=== PATIENT | female | born 1990 | race Caucasian/White ===

== ENCOUNTER 2020-11-16 09:54 | Emergency (ER) | payer OTHER, BC ==
[~2020-11-16] VITALS: Ht 152.4 cm; Wt 93.0 kg
[2020-11-16 10:00] VITALS: BP 130/88
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
== END 2020-11-16 10:35 | disposition home or self-care (01) ==
LOC: ER 09:54
DX: S00.83XA Contusion of other part of head, initial encounter (principal); S70.212A Abrasion, left hip, initial encounter; V03.99XA Pedestrian with other conveyance injured in collision with car, pick-up truck or van, unspecified whether traffic or nontraffic accident, initial encounter; Y93.01 Activity, walking, marching and hiking; Y92.89 Other specified places as the place of occurrence of the external cause; Y99.8 Other external cause status
CPT/HCPCS: 99282

== ENCOUNTER 2020-12-22 08:24 | Emergency (ER) | payer BC, OTHER ==
[~2020-12-22] VITALS: Ht 152.4 cm; Wt 95.1 kg
[2020-12-22 08:24] VITALS: BP 127/79
--- NOTE | 2020-12-22 08:49 | PHYS DOC ---
Past History Past Surgical History: Other Additional Past Surgical Histo: WISDOM TEETH Alcohol Use: Rarely Adult General Chief Complaint Chief Complaint: BACK PAIN OR INJURY [facility] HPI Patient is a 30-year-old female presenting for tailbone pain. Onset was after an injury suffered yesterday while at local [employer]. States she was going down the slide and accidentally landed on the bottom directly on her tailbone. She did not hit her head, no loss of consciousness. She reports she had focal pain to her inferior portion of tailbone and superior glutes. Reported pain that was worse with sitting and alleviated with standing and walking around. She took x2 extra strength Tylenol on 2 separate occasions yesterday with mild relief in pain. She woke up today with ongoing pain prompting her to come in for evaluation. She has no other concerning red flag signs or symptoms of back pain such as long-term steroid use, fever, IV drug use, unintentional weight loss or other concerning findings Review of Systems Review of Systems Fourteen body systems of review of systems have been reviewed. See HPI for pertinent positives and negative responses, other cabrera all other systems are negative, non-pertinent or non-contributory Allergies Allergies Allergies Coded Allergies Type Severity Reaction Last Updated Verified No Known Drug Allergies 11/16/20 No Physical Exam Physical Exam Constitutional: Well developed, obese, well nourished, no acute distress, non- toxic appearance. HENT: Normocephalic, atraumatic, bilateral external ears normal, oropharynx moist, no oral exudates, nose normal. Eyes: PERRLA, EOMI, conjunctiva normal, no discharge. Neck: Normal range of motion, no tenderness, supple, no stridor. Cardiovascular: Heart rate regular, sinus rhythm, no murmurs rubs or gallops Lungs & Thorax: Bilateral breath sounds clear to auscultation Abdomen: Bowel sounds normal, soft, no tenderness, no masses, no pulsatile masses. Nonsurgical abdomen, no peritoneal signs Skin: Warm, dry, no erythema, no rash. Back: No midline spinal tenderness of cervical thoracic or lumbar regions, negative straight leg raise bilaterally, no CVA tenderness. Extremities: No tenderness, no cyanosis, no clubbing, ROM intact, no edema. Neurologic: Alert and oriented X 3, no saddle anesthesia, normal motor & sensory function, no focal deficits noted. Psychologic: Affect normal, judgement normal, mood normal. Current Patient Data Vital Signs Vital Signs Date Time Temp Pulse Resp B/P (MAP) Pulse Ox O2 Delivery O2 Flow Rate FiO2 12/22/20 08:24 102 18 127/79 (95) 98 Room Air Vital Signs Date Time Temp Pulse Resp B/P (MAP) Pulse Ox O2 Delivery O2 Flow Rate FiO2 12/22/20 08:24 102 18 127/79 (95) 98 Room Air EKG EKG [] Radiology/Procedures Radiology/Procedures [] Heart Score C/O Chest Pain: No Risk Factors: Risk Factors: DM, Current or recent (<one month) smoker, HTN, HLP, family history of CAD, obesity. Risk Scores: Risk Factors: DM, Current or recent (<one month) smoker, HTN, HLP, family history of CAD, obesity. Course & Med Decision Making Course & Med Decision Making ABCs, history and physical examination non-concerning. There are no red flag signs of back pain present. I have low suspicion for malignancy/mets, acute Spinal Fracture, Vertebral Osteomyelitis, Epidural Abscess, Infected or Obstructing Kidney Stone. Their presentation appears most likely to be secondary to non-emergent musculoskeletal etiology vs non-emergent disc herniation. ED Workup: Defer imaging and labwork for outpatient follow up at this time. Disposition: Discharge. Strict return precautions discussed with patient with full understanding. Advised patient to follow up promptly with primary care provider Angela Disclaimer Angela Disclaimer This electronic medical record was generated, in whole or in part, using a voice recognition dictation system. Departure Departure: Impression: Primary Impression: Lower back pain Disposition: HOME / SELF CARE / HOMELESS Condition: STABLE Referrals: PCP,NO (PCP) Patient Instructions: Back Pain, Adult, Tailbone Injury Additional Instructions: You were evaluated in the Emergency Department today for back pain. Your evaluation suggests no acute abnormalities which require further intervention at this time. Your pain is most likely due to to a musculoskeletal cause that should improve with supportive care. - Move around as tolerated but avoiding heavy lifting. ``Bed rest is not recommended nor is it the best treatment for low back pain. - Medications will help control your discomfort: - -Ibuprofen (800 mg every 8 hours for pain) with food. - -Tylenol - Do not drink alcohol, drive a car, operate machinery, or get up on ladders or heights when taking any prescribed pain medications. - Do not drive home if you received prescribed pain medications here in the ED. Return to the ED immediately if you develop any of the following problems: - Leaking urine or difficulty urinating; - Inability to control your bowels; - New numbness or weakness in your legs or numbness between your legs; - Inability to walk - Fever Scripts Cyclobenzaprine Hcl (CYCLOBENZAPRINE HCL) 10 Mg Tablet 1 TAB PO QHS for muscle spasms, #15 TAB Prov: ROMELIA MASSEY DO 12/22/20 ROMELIA MASSEY DO Dec 22, 2020 08:49
[2020-12-22] MEDS ORDERED: CYCL10TA19 PO (09:24)
== END 2020-12-22 09:28 | disposition home or self-care (01) ==
LOC: ER 08:24
DX: M54.59 Other low back pain (principal); M53.3 Sacrococcygeal disorders, not elsewhere classified
CPT/HCPCS: 99283